=== PATIENT | female | born 1965 | race Caucasian/White ===

== ENCOUNTER 2019-08-19 20:38 | Inpatient (IN) | payer OTHER, MEDICAID ==
[~2019-08-19] VITALS: Ht 172.7 cm; Wt 117.5 kg
[2019-08-19] MEDS ORDERED: ONDANSETRON HCL 4MG/2ML INJ IV STA ×2 (21:01)
[2019-08-19] MEDS ORDERED: SODIUM CHLORIDE 0.9% 1,000 ML IV ONE (21:01)
[2019-08-19] MEDS ORDERED: SODIUM CHLORIDE 0.9% 1000ML BAG (SEPSIS BOLUS) IV ONE (21:15)
[2019-08-19] MEDS ORDERED: CEFTRIAXONE 1 G PREMIX 50 ML IV ONE (21:15)
[2019-08-19 23:00] LABS: CLARITY URINE TURBID (CLEAR); COLOR URINE ORANGE (YELLOW); KETONES URINE TRACE (NEGATIVE); LEUKOCYTE ESTERASE URINE 3+ (NEGATIVE); NITRITE URINE NEGATIVE (NEGATIVE); OCCULT BLOOD URINE 3+ (NEGATIVE); PH URINE 5.5 (4.5-8.0); PROTEIN URINE 2+ (NEGATIVE); SPECIFIC GRAVITY URINE 1.018 (1.005-1.030)
[2019-08-19 23:25] LABS: CANNABINOID URINE SCREEN NEGATIVE (NEGATIVE)
[2019-08-19 23:26] LABS: *AMPHETAMINES SCREEN URINE NEGATIVE (NEGATIVE); *BARBITURATES SCREEN URINE NEGATIVE (NEGATIVE); *BENZODIAZEPINES SCREEN URINE NEGATIVE (NEGATIVE); *COCAINE SCREEN URINE NEGATIVE (NEGATIVE); METHADONE URINE SCREEN NEGATIVE (NEGATIVE); OPIATES URINE SCREEN NEGATIVE (NEGATIVE)
[2019-08-19 23:26] LABS: BASOPHILS % 0.3 % (0.0-2.0); EOSINOPHILS % 0.2 % (0.0-5.0); HEMATOCRIT. 36.9 % (36.0-48.0); HEMOGLOBIN. 12.1 g/dL (12.0-16.0); LYMPHOCYTES % 8.8 % (20.0-50.0); MEAN CORPUSCULAR HEMOGLOBIN 28.9 pg (28.0-32.0); MEAN CORPUSCULAR VOLUME 88.2 fL (81.0-99.0); MEAN PLATELET VOLUME 8.7 fl (7.4-10.4); MONOCYTES % 6.8 % (2.0-8.0); NEUTROPHILS % 83.9 % (40.0-76.0); PLATELET 257 x1000/uL (130-400); RED BLOOD CELL COUNT 4.18 mill/uL (4.2-5.4)
[2019-08-19 23:27] LABS: PHENCYCLIDINE URINE SCREEN NEGATIVE (NEGATIVE)
[2019-08-19 23:33] LABS: CHLORIDE 102 mEq/L (98-107)
[2019-08-19 23:37] LABS: ETHANOL BLOOD < 10 mg/dL
[2019-08-19] MEDS ORDERED: PIPERACILLIN/TAZOBACTAM 3.375GM/50ML PREMIX IV SCH (23:45)
[2019-08-19] MEDS ORDERED: MORPHINE SULFATE 4 MG/ML CPJ (NOT FOR IM USE) IV ONE (23:45)
[2019-08-20] MEDS ORDERED: GABA-529 MT (04:01)
[2019-08-20 04:20] VITALS: BP 106/55
[2019-08-20] MEDS ORDERED: DEXTROSE 50% WATER 50ML SYRINGE IV PRN (05:30)
[2019-08-20] MEDS ORDERED: KETOROLAC 30MG/ML VIAL IV PRN (05:30)
[2019-08-20] MEDS: SODIUM CHLORIDE 0.9% 1,000 ML IV SCH ×2 (06:25→17:25)
[2019-08-20 08:00] VITALS: BP 125/51
[2019-08-20] MEDS: BLOOD SUGAR DIAGNOSTIC STRIP TEST SCH ×3 (08:34→17:17)
[2019-08-20] MEDS: INSULIN LISPRO 100 UNITS/ML SUBCUT SCH ×4 (08:39→20:36)
[2019-08-20] MEDS: HEPARIN 5000 UNITS/ML VIAL SUBCUT SCH ×2 (08:40→20:35)
[2019-08-20 08:58] LABS: BASOPHILS % 0.7 % (0.0-2.0); EOSINOPHILS % 0.1 % (0.0-5.0); HEMATOCRIT. 35.2 % (36.0-48.0); HEMOGLOBIN. 11.6 g/dL (12.0-16.0); LYMPHOCYTES % 8.1 % (20.0-50.0); MEAN CORPUSCULAR VOLUME 88.4 fL (81.0-99.0); MEAN PLATELET VOLUME 8.5 fl (7.4-10.4); MONOCYTES % 6.5 % (2.0-8.0); NEUTROPHILS % 84.6 % (40.0-76.0); PLATELET 264 x1000/uL (130-400); RED BLOOD CELL COUNT 3.98 mill/uL (4.2-5.4); RED CELL DISTRIBUTION WIDTH 13.9 % (11.6-14.6)
[2019-08-20 12:00] VITALS: BP 133/48
[2019-08-20] MEDS: CEFEPIME 2,000 MG in DEXT 5% WATER 100 ML IV SCH (13:30)
[2019-08-20] MEDS: ACETAMINOPHEN 325MG TABLET PO PRN ×2 (15:22→20:57)
[2019-08-20 16:00] VITALS: BP 118/50
[2019-08-20 20:00] VITALS: BP 144/62
[2019-08-21] VITALS: BP 123/52
[2019-08-21] MEDS ORDERED: CEFTRIAXONE 1 G PREMIX 50 ML IV SCH
[2019-08-21] MEDS: CEFEPIME 2,000 MG in DEXT 5% WATER 100 ML IV SCH (01:53)
[2019-08-21] MEDS: ACETAMINOPHEN 325MG TABLET PO PRN ×3 (03:05→21:35)
[2019-08-21 04:00] VITALS: BP 109/50
[2019-08-21] MEDS: BLOOD SUGAR DIAGNOSTIC STRIP TEST SCH ×4 (06:05→21:34)
[2019-08-21 08:00] VITALS: BP 133/62
[2019-08-21] MEDS: INSULIN LISPRO 100 UNITS/ML SUBCUT SCH ×4 (09:19→21:35)
[2019-08-21] MEDS: HEPARIN 5000 UNITS/ML VIAL SUBCUT SCH ×2 (09:19→21:35)
[2019-08-21] MEDS: SODIUM CHLORIDE 0.9% 1,000 ML IV SCH (09:21)
[2019-08-21 10:16] LABS: BASOPHILS % 0.2 % (0.0-2.0); EOSINOPHILS % 0.9 % (0.0-5.0); HEMATOCRIT. 33.9 % (36.0-48.0); HEMOGLOBIN. 11.1 g/dL (12.0-16.0); LYMPHOCYTES % 10.2 % (20.0-50.0); MEAN CORPUSCULAR HEMOGLOBIN 29.1 pg (28.0-32.0); MEAN CORPUSCULAR VOLUME 88.6 fL (81.0-99.0); MEAN PLATELET VOLUME 9.1 fl (7.4-10.4); MONOCYTES % 6.5 % (2.0-8.0); NEUTROPHILS % 82.2 % (40.0-76.0); PLATELET 233 x1000/uL (130-400); RED BLOOD CELL COUNT 3.83 mill/uL (4.2-5.4); RED CELL DISTRIBUTION WIDTH 14.3 % (11.6-14.6)
[2019-08-21 12:00] VITALS: BP 96/52
[2019-08-21] MEDS: MEROPENEM 1,000 MG in SODIUM CHLORIDE 0.9% 100 ML IV SCH ×2 (13:32→21:34)
[2019-08-21 16:00] VITALS: BP 169/48
[2019-08-21 20:00] VITALS: BP 124/58
[2019-08-22] VITALS: BP 107/48
[2019-08-22 04:00] VITALS: BP 156/62
[2019-08-22] MEDS: MEROPENEM 1,000 MG in SODIUM CHLORIDE 0.9% 100 ML IV SCH ×2 (05:01→13:06)
[2019-08-22] MEDS: ACETAMINOPHEN 325MG TABLET PO PRN (05:01)
[2019-08-22] MEDS: BLOOD SUGAR DIAGNOSTIC STRIP TEST SCH ×3 (05:58→17:40)
[2019-08-22 08:00] VITALS: BP 122/64
[2019-08-22 08:03] LABS: BASOPHILS % 0.5 % (0.0-2.0); EOSINOPHILS % 1.8 % (0.0-5.0); HEMATOCRIT. 35.1 % (36.0-48.0); HEMOGLOBIN. 11.7 g/dL (12.0-16.0); LYMPHOCYTES % 14.5 % (20.0-50.0); MEAN CORPUSCULAR HEMOGLOBIN 29.3 pg (28.0-32.0); MEAN CORPUSCULAR VOLUME 88.3 fL (81.0-99.0); MEAN PLATELET VOLUME 9.4 fl (7.4-10.4); MONOCYTES % 8.7 % (2.0-8.0); NEUTROPHILS % 74.5 % (40.0-76.0); PLATELET 241 x1000/uL (130-400); RED BLOOD CELL COUNT 3.97 mill/uL (4.2-5.4); RED CELL DISTRIBUTION WIDTH 14.3 % (11.6-14.6)
[2019-08-22] MEDS: INSULIN LISPRO 100 UNITS/ML SUBCUT SCH ×2 (08:40→13:07)
[2019-08-22] MEDS: HEPARIN 5000 UNITS/ML VIAL SUBCUT SCH (08:41)
[2019-08-22] MEDS: SODIUM CHLORIDE 0.9% 1,000 ML IV SCH (08:42)
[2019-08-22 12:00] VITALS: BP 144/49
[2019-08-22 15:11] VITALS: BP 144/49
[2019-08-22 16:00] VITALS: BP 132/69
== END 2019-08-22 19:02 | disposition short-term general hospital (02) | DRG 872 ==
LOC: ER 20:38 → 7WST 08-20 00:21 → ENRESERV 08-20 01:41
PROVIDERS: ADMIT Internal Medicine; ATTEND Internal Medicine
DX: A41.51 Sepsis due to Escherichia coli [E. coli] (principal); N17.9 Acute kidney failure, unspecified; Z16.12 Extended spectrum beta lactamase (ESBL) resistance; N39.0 Urinary tract infection, site not specified; E87.1 Hypo-osmolality and hyponatremia; E66.01 Morbid (severe) obesity due to excess calories; B96.89 Other specified bacterial agents as the cause of diseases classified elsewhere; E11.9 Type 2 diabetes mellitus without complications; I10 Essential (primary) hypertension; Z79.4 Long term (current) use of insulin; Z68.39 Body mass index [BMI] 39.0-39.9, adult
CPT/HCPCS: 36415; 74176; 80048; 80305; 80307; 80320; 80329; 81003; 82140; 82962; 83605; 84145; 87077; 87186; 93970; 96365; 96367; 96376; 99291; J0692; J0696; J1644; J1815; J2185; J2270; J2405; J2543; J7030; J7050; J7060; G0480